=== PATIENT | female | born 1965 | race American Indian/Alaskan Native ===

== ENCOUNTER 2017-12-10 15:16 | Inpatient (IN) | payer MEDICAID ==
[2017-12-10 16:34] LABS: SQUAMOUS EPITHIAL 39 /hpf (0-5); URINE BACTERIA RARE (<OCC); URINE BILIRUBIN NEGATIVE (NEGATIVE); URINE BLOOD NEGATIVE (NEGATIVE); URINE CLARITY Hazy (Clear); URINE COLOR Yellow (YELLOW); URINE GLUCOSE (UA) NORMAL (Normal); URINE LEUKOCYTE ESTERASE NEG Leu/uL (Negative); URINE PROTEIN 2+ mg/dL (NEGATIVE)
[2017-12-10 17:15] LABS: ALBUMIN 4.4 g/dL (3.5-5.0); ALT/SGPT 16 U/L (9-52); AST/SGOT 24 U/L (14-36); BLOOD UREA NITROGEN 17 mg/dL (7-17); CALCIUM 9.3 mg/dl (8.6-10.4); GFR AFRICAN-AMERICAN 52; GFR NON-AFRICAN AMERICAN 43
[2017-12-10 17:16] LABS: BASO % 0.3 % (0.0-2.0); EOS # 0.1 K/uL (0.0-0.7); EOS % 1.2 % (0.0-4.0); HEMOGLOBIN 14.6 g/dL (11.0-16.0); LYMPH # 2.9 K/uL (1.0-4.3); LYMPH % 56.3 % (20.0-40.0); MEAN CELL VOLUME 94.8 fL (81.0-99.0); MEAN CORPUSCULAR HEMOGLOBIN 31.6 pg (27.0-31.0); MEAN CORPUSCULAR HGB CONC 33.3 g/dL (33.0-37.0); MEAN PLATELET VOLUME 8.4 fL (7.2-11.7); MONO # 0.3 K/uL (0.0-0.8); NEUT # 1.9 K/uL (1.8-7.0); NEUT % 37.2 % (50.0-75.0); NRBC % 0.1 % (0.0-2.0); RBC 4.64 Mil/uL (3.80-5.20); RED CELL DISTRIBUTION WIDTH 14.8 % (11.5-14.5); WHITE BLOOD COUNT 5.2 K/uL (4.8-10.8)
[2017-12-10 17:32] LABS: BARBITURATES, UR NEGATIVE (NEGATIVE); BENZODIAZEPINES, UR NEGATIVE (NEGATIVE); PHENCYCLIDINE, UR NEGATIVE (NEGATIVE)
--- NOTE | 2017-12-10 17:32 | C.PDOC ---
History Of Present Illness 52 year old female presents to the ER requesting detox from oxycodon and heroin. Denies suicidal ideation or homicidal ideation. Denies other complaints at this time. Time Seen by Provider: 12/10/17 15:29 Chief Complaint (Nursing): Substance Abuse History Per: Patient History/Exam Limitations: no limitations Onset/Duration Of Symptoms: Days Current Symptoms Are (Timing): Still Present Suicide/Self Injury Attempted (Context): None Involuntary Hold By: None Recent travel outside of the [place]: No Past Medical History Reviewed: Historical Data, Nursing Documentation, Vital Signs Vital Signs: Last Vital Signs Temp 98.4 F 12/10/17 18:36 Pulse 55 L 12/10/17 18:36 Resp 16 12/10/17 18:36 BP 196/78 H 12/10/17 18:36 Pulse Ox 100 12/10/17 18:41 - Medical History PMH: Arthritis, Back Problems, CHF, Chronic Kidney Disease Family History: States: Unknown Family Hx - Social History Hx Alcohol Use: No Hx Substance Use: No - Immunization History Hx Tetanus Toxoid Vaccination: No Hx Influenza Vaccination: No Hx Pneumococcal Vaccination: No Review Of Systems Except As Marked, All Systems Reviewed And Found Negative. Physical Exam - Physical Exam Appears: Non-toxic Skin: Normal Color, Warm, Dry Head: Atraumatic, Normacephalic Eye(s): bilateral: Normal Inspection Oral Mucosa: Moist Neck: Normal, Supple Chest: Symmetrical, No Tenderness Cardiovascular: Rhythm Regular Respiratory: Normal Breath Sounds, No Rales, No Rhonchi, No Wheezing Gastrointestinal/Abdominal: Soft, No Tenderness Back: No CVA Tenderness Extremity: Normal ROM (x4) Neurological/Psych: Oriented x3, Normal Speech ED Course And Treatment - Laboratory Results Result Diagrams: 12/10/17 17:09 12/10/17 16:20 O2 Sat by Pulse Oximetry: 100 (Room air) Pulse Ox Interpretation: Normal Medical Decision Making Medical Decision Making: Assessment: Substance abuse Plan: * Blood work * Urinalysis * Crisis Patient medically cleared. Patient accept for detox admission under Dr. Delaney. Disposition Discussed With : Oscar Delaney Doctor Will See Patient In The: Hospital Counseled Patient/Family Regarding: Studies Performed, Diagnosis - Disposition Disposition: HOSPITALIZED Disposition Time: 18:41 Condition: FAIR - Clinical Impression Clinical Impression: Drug abuse - Scribe Statement The provider has reviewed the documentation as recorded by the Scribe Gomez Penn All medical record entries made by the Scribe were at my direction and personally dictated by me. I have reviewed the chart and agree that the record accurately reflects my personal performance of the history, physical exam, medical decision making, and the department course for this patient. I have also personally directed, reviewed, and agree with the discharge instructions and disposition.
[2017-12-10 17:41] LABS: OPIATES, UR POSITIVE (NEGATIVE)
--- NOTE | 2017-12-10 19:00 | PCM.BM ---
<NanyCece - Last Filed: 12/10/17 18:59> Treatment Plan Problems - Problems identified on initial assessmt Potential for opiate withdrawal Date Initiated: 12/10/17 Time Initiated: 18:59 Assessment reference: NA Status: Active Treatment assets and liabiliti Patient Assests: ADL independent, negotiates basic needs, cognitively intact Patient Liabilities: substance abuse, medical problems - Milieu Protocol Maintain good personal hygiene: daily Encourage regular showers, daily Remind patient to perform daily oral care, daily Assist patient to perform ADL's Conduct patient checks and document Observation sheet: Q15 minutes Maintain personal safety: every shift Educate patient to report safety concerns to staff, every shift Monitor environment for contraband/sharps Medication safety: Monitor for expected outcome, potential side effects: every shift, Assess barriers to learning: every shift, Assess readiness for medication education: every shift <Valerie Read - Last Filed: 12/12/17 09:00> Family Contact Family involvement: Famliy/SO not involved - Goals for Treatment Patient goals for treatment: Complete detox and transition to IOP. Discharge/Continuing Care - Education Needs Education Needs: Patient Medication, Patient Diagnosis/Disease Process, Patient Coping Skills, Patient Anger Management skills, Patient Placement options, Patient Community resources - Discharge Discharge Criteria: No longer exhibiting s/s of withdrawal, Reduction of target symptoms Discharge to:: Home - Treatment Team Participation Patient/Family/SO Statement: 12/12/17 08:59 "I wanna go to an IOP in [place]..." Discussed with Family/SO: No Was Patient/Family/SO present at Treatment Team Meeting: Yes
--- NOTE | 2017-12-11 14:41 | PCM.PSYCH ---
Initial Psychiatric Evaluation - Initial Psychiatric Evaluation Type of Admission: Voluntary Chief Complaint (in patient's own words): "I want to be off this stuff" History of Present Illness and Precipitating Events: Patient was seen with treatment team. Patient is a 52 year old female with extensive medical history. The patient states that she brought herself to the ED for detox from oxycodone and heroin. The patient is wheelchair bound and is one disability. She states that she does 2-3 bags of heroin a day and takes 3-4 oxycodone pills a day. The patient also smokes cocaine. The patient states that her use started after she was in the correction where she was given Oxycodone. On her discharge from the correction the patient was not given any oxycodone so the patient resorted to using heroin. The patient has been a part of a methadone clinic previously for 8 months. She states that she has been to detox 3-4 times and rehab twice. The patient states that she is willing to go to outpatient rehab. She reports no psychiatric history. The patient has no suicidal or homicidal ideations. Past Medical Hx: HTN, CKD Stage IV, Spinal Stenosis, osteoarthritis Social History: The patient lives with her fiance and is on disability, patient smokes 10 cigarettes a day Family Hx: denies Current Medications: Active Medications Generic Name Dose Route Start Last Admin Trade Name Freq PRN Reason Stop Dose Admin Acetaminophen 650 mg 12/10/17 20:26 12/11/17 13:25 Tylenol 325mg Tab PO 650 mg Q8 PRN Administration Pain, moderate (4-7) Clonidine HCl 0.1 mg 12/10/17 20:54 12/10/17 21:14 Catapres PO 0.1 mg Q8 PRN Administration opiate withdrawal Clonidine HCl 0.1 mg 12/11/17 14:00 12/11/17 12:40 Catapres PO 0.1 mg TID GISEL Administration Ferrous Sulfate 325 mg 12/11/17 14:00 12/11/17 13:30 Feosol PO 325 mg TID GISEL Administration Hydralazine HCl 50 mg 12/11/17 14:00 12/11/17 12:40 Apresoline PO 50 mg TID GISEL Administration Losartan Potassium 100 mg 12/11/17 10:45 12/11/17 11:08 Cozaar PO 100 mg DAILY GISEL Administration Methadone HCl 15 mg 12/11/17 10:00 12/11/17 11:08 Methadone PO 12/15/17 09:59 15 mg Q24H GISEL Administration Taper Nicotine 1 patch 12/11/17 10:00 12/11/17 11:08 Nicoderm Cq TD 1 patch DAILY GISEL Administration Trazodone HCl 50 mg 12/10/17 20:18 12/10/17 21:14 Desyrel PO 50 mg HS PRN Administration Insomnia Past Psychiatric History - Past Psychiatric History Previous Treatment History: None Pertinent Medical Hx (Current Medical&Sleep Prob, Allergies): Allergies Allergy/AdvReac Type Severity Reaction Status Date / Time amlodipine Allergy Verified 12/10/17 15:32 Acetaminophen with Codeine [Tylenol with Codeine #4 Tablet] 1 each PO TID Ferrous Sulfate 325 mg PO TID 12/10/17 Losartan [Cozaar] 100 mg PO DAILY 12/10/17 Zolpidem [Ambien] 5 mg PO HS 12/10/17 cloNIDine [clonidine HCl] 0.1 mg PO TID 12/10/17 hydrALAZINE [hydralazine Hydrochloride] 50 mg PO TID 12/10/17 Review of Systems - Psychiatric Psychiatric: Abnormal Sleep Pattern, Anxiety, Difficulty Concentrating. absent : Homicidal Ideation, Paranoia, Suicidal Ideation Mental Status Examination - Personal Presentation Personal Presentation: Looks stated age - Affect Affect: Broad - Motor Activity Motor Activity: Calm - Reliability in Providing Information Reliability in Providing Information: Fair - Speech Speech: Organized - Mood Mood: Anxious - Formal Thought Process Formal Thought Process: No Impairment - Cognitive Functions Orientation: Person, Place, Situation, Time Sensorium: Alert Attention/Concentration: Attentive Estimate of Intelligence: Average Judgement: Intact, as evidence by: Insight regarding need for hospitalization Memory: Recent intact, as evidence by: Ability to recall events of the day, Remote intact, as evidenced by: Abilit to recall sig. life events - Risk Risk: Withdrawal, Diminished functioning - Strength & Assets Inventory Strength & Assets Inventory: Cooperative - Limitations Limitations: Living alone DSM 5 DX - DSM 5 DSM 5 Diagnosis: Opioid use disorder, moderate Opioid withdrawal Cocaine use disorder, moderate Tobacco use disorder - Recommended/Plan of Treatment Treatment Recommendations and Plan of Treatment: Opioid use disorder severe CBT Psychoeducation Supportive therapy, individual therapy Use [place] for abstinence Refer to outpatient program Opioid withdrawal Monitor for withdrawal symptoms Taper with methadone Cocaine use disorder moderate CBT Psychoeducation Supportive therapy, individual therapy Use [place] for abstinence Tobacco use disorder CBT Psychoeducation Supportive therapy, individual therapy Use [place] for abstinence Nicotine patch if needed 33 min Projected ELOS: 4 days - Smoking Cessation Smoking Cessation Initiated: Yes
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
[2017-12-12 09:41] LABS: BASO % 0.6 % (0.0-2.0); EOS # 0.1 K/uL (0.0-0.7); EOS % 1.7 % (0.0-4.0); HEMOGLOBIN 12.9 g/dL (11.0-16.0); LYMPH # 2.1 K/uL (1.0-4.3); LYMPH % 65.1 % (20.0-40.0); MEAN CELL VOLUME 93.9 fL (81.0-99.0); MEAN CORPUSCULAR HEMOGLOBIN 31.9 pg (27.0-31.0); MEAN PLATELET VOLUME 9.2 fL (7.2-11.7); MONO # 0.2 K/uL (0.0-0.8); MONO % 5.7 % (0.0-10.0); NEUT # 0.9 K/uL (1.8-7.0); NEUT % 26.9 % (50.0-75.0); NRBC % 0.1 % (0.0-2.0); RBC 4.05 Mil/uL (3.80-5.20); RED CELL DISTRIBUTION WIDTH 14.9 % (11.5-14.5); WHITE BLOOD COUNT 3.2 K/uL (4.8-10.8)
[2017-12-12 10:03] LABS: ALB/GLOB RATIO 1.1 (1.0-2.1); ALT/SGPT 24 U/L (9-52); AST/SGOT 31 U/L (14-36); BLOOD UREA NITROGEN 27 mg/dL (7-17); CALCIUM 9.4 mg/dl (8.6-10.4); GFR AFRICAN-AMERICAN 38; GFR NON-AFRICAN AMERICAN 31
--- NOTE | 2017-12-12 10:40 | CT ---
Date of service: 12/12/2017 PROCEDURE: CT HEAD WITHOUT CONTRAST. HISTORY: HTN emergency with headache COMPARISON: None available. TECHNIQUE: Axial computed tomography images were obtained through the head/brain without intravenous contrast. Radiation dose: Total exam DLP = 706.25 mGy-cm. This CT exam was performed using one or more of the following dose reduction techniques: Automated exposure control, adjustment of the mA and/or kV according to patient size, and/or use of iterative reconstruction technique. FINDINGS: HEMORRHAGE: No intracranial hemorrhage. BRAIN: No mass effect or edema. No atrophy or chronic microvascular ischemic changes. VENTRICLES: Unremarkable. No hydrocephalus. CALVARIUM: Unremarkable. PARANASAL SINUSES: Unremarkable as visualized. No significant inflammatory changes. MASTOID AIR CELLS: Unremarkable as visualized. No inflammatory changes. OTHER FINDINGS: None. IMPRESSION: Normal CT of the Head. No intracranial mass, hemorrhage or evidence of acute infarct
[2017-12-12] MEDS ORDERED: Nitroglycerin 2% Ointment Foilpak UD TOP ONE (11:30)
--- NOTE | 2017-12-12 12:35 | PCM.PYCHPN ---
Psychiatric Progress Note - Psychiatric Progress Note Patient Chief Complaint: "I want to be off this stuff" Medication Change: Yes Medical Record Reviewed: Yes Mental Status Examination - Cognitive Function Orientation: Person, Place, Situation, Time - Mood Mood: Anxious - Affect Affect: Broad - Formal Thought Process Formal Thought Process: No Impairment - Homicidal Ideation Homicidal Ideation: No Goal/Treatment Plan - Goal/Treatment Plan Progress Toward Problem(s) and Goals/Treatment Plan: Opioid use disorder severe CBT Psychoeducation Supportive therapy, individual therapy Use [place] for abstinence Refer to outpatient program Opioid withdrawal Monitor for withdrawal symptoms Taper with methadone Cocaine use disorder moderate CBT Psychoeducation Supportive therapy, individual therapy Use [place] for abstinence Tobacco use disorder CBT Psychoeducation Supportive therapy, individual therapy Use [place] for abstinence Nicotine patch if needed 33 min
--- NOTE | 2017-12-12 14:12 | CP.PCM.PN ---
Subjective - Date & Time of Evaluation Date of Evaluation: 12/12/17 Time of Evaluation: 14:04 - Subjective Subjective: Patient seen and examined at bedside. Stated that her head is foggy due to opoid withdrawal. Patient denied chest pain, palpitation, dyspnea, leg selling, headache, blurry vision, fever. Patient denied h/o stroke, [place]. Last Echo was done with Dr Armstrong (her fish flipper) within the last few month but does not know the results. Patient stated that she is compliant with her home medications. Objective - Vital Signs/Intake and Output Vital Signs (last 24 hours): Temp Pulse Resp BP Pulse Ox 98.6 F 44 L 22 200/84 H 100 12/12/17 06:30 12/12/17 12:24 12/12/17 10:51 12/12/17 09:00 12/12/17 10:51 Intake and Output: 12/12/17 12/12/17 06:59 18:59 Intake Total 250 Balance 250 - Medications Medications: Current Medications Acetaminophen (Tylenol 325mg Tab) 650 mg PO Q8 PRN PRN Reason: Pain, moderate (4-7) Last Admin: 12/12/17 07:58 Dose: 650 mg Clonidine HCl (Catapres) 0.1 mg PO Q8 PRN PRN Reason: opiate withdrawal Last Admin: 12/10/17 21:14 Dose: 0.1 mg Clonidine HCl (Catapres) 0.1 mg PO TID [facility] Last Admin: 12/12/17 13:37 Dose: Not Given Ferrous Sulfate (Feosol) 325 mg PO TID [facility] Last Admin: 12/12/17 13:22 Dose: 325 mg Hydralazine HCl (Apresoline) 50 mg PO TID [facility] Last Admin: 12/12/17 13:18 Dose: Not Given Hydralazine HCl (Apresoline) 10 mg IVP Q6H PRN PRN Reason: Systolic Blood Pressure Losartan Potassium (Cozaar) 100 mg PO DAILY [facility] Last Admin: 12/12/17 09:27 Dose: 100 mg Methadone HCl (Methadone) 10 mg PO Q24H [facility] PRN Reason: Taper Stop: 12/15/17 09:59 Last Admin: 12/12/17 09:28 Dose: Not Given Nicotine (Nicoderm Cq) 1 patch TD DAILY [facility] Last Admin: 12/12/17 10:30 Dose: Not Given Trazodone HCl (Desyrel) 50 mg PO HS PRN PRN Reason: Insomnia Last Admin: 12/11/17 21:09 Dose: 50 mg - Labs Labs: 12/12/17 09:37 12/12/17 09:37 - Constitutional Appears: Well, No Acute Distress - Head Exam Head Exam: ATRAUMATIC, NORMAL INSPECTION, NORMOCEPHALIC - Eye Exam Eye Exam: EOMI, Normal appearance, PERRL - ENT Exam ENT Exam: Mucous Membranes Moist - Neck Exam Neck Exam: absent: Lymphadenopathy - Respiratory Exam Respiratory Exam: Clear to Ausculation Bilateral - Cardiovascular Exam Cardiovascular Exam: Bradycardia, Murmur - GI/Abdominal Exam GI & Abdominal Exam: Soft, Normal Bowel Sounds. absent: Tenderness - Rectal Exam Rectal Exam: Deferred - Extremities Exam Extremities Exam: Full ROM, Normal Capillary Refill, Normal Inspection. absent : Joint Swelling, Pedal Edema - Back Exam Back Exam: NORMAL INSPECTION - Neurological Exam Neurological Exam: Alert, Altered, Awake, Oriented x3 - Psychiatric Exam Psychiatric exam: Normal Affect, Normal Mood - Skin Skin Exam: Dry, Normal Color Assessment and Plan (1) HTN (hypertension) Assessment & Plan: BP max 200/84 today. pt asymptomatic Head CT: no intracranial hge hydralazine 50 mg TID clonidine 0.1 mg TID losartan 100 mg QD Echocardiogram Troponin -ve x1 Status: Acute (2) EKG abnormalities Status: Acute (3) Drug abuse Assessment & Plan: Urine Tox + opiate and cocaine as per psychiatry reccs Status: Acute
--- NOTE | 2017-12-12 16:00 | CP.PCM.CON ---
History of Present Illness - History of Present Illness History of Present Illness: Nephrology Consultation Note: Assessment: critical uncontrolled severe HTN with emergency Acute Kidney Injury (N17.9) likely hemodynamic due to BP changes, drugs such as cocaine also contributes CKD stage 3 with 500 mg proteinuria likely due to HTN HTN CKD (I12.9) cocaine abuse, opiates abuse active smoker thrombocytopenia Plan No acute need for renal replacement therapy at this time maintain hemodynamics stable. continue with losartan 100 mg/day. increase hydralazine 100 mg q8 hr. will start minoxidil 5 mg/day and chlorthalidone 25 mg /day. pt had tolerated norvasc in past, consider re-introducing it if not adequately controlled with changes made. If BP remains uncontrolled to this degree, consider transfer to ICU today for IV meds/continuous drips. minimize clonidine due to bradycardia. Avoid beta-blockers due to cocaine + and bradycardia. monitor I/O daily weights and renal function with BMP will consider secondary HTN work up if BP remains uncontrolled despite abstinence from drugs Dose meds/antibiotics for reduced GFR. Avoid fleets enema/magnesium based laxatives. Avoid nephrotoxins/NSAIDs/ iodinated contrast (unless needed emergently) Glycemic control, low salt diet Further work up for as per primary team. Glycemic control. pt need to abstain from drugs. smoking cessation. weight loss. diet/exercise and lifestyle modifications needed. d/w patient about risks and consequences of uncontrolled HTN and drug abuse. Further work up/management as per primary team Thanks for allowing me to participate in care of your patient. Will follow with you. Please call if any Qs. d/w team. Dr Rolly Cardoso Office: [phone] Chief Complaint; headache reason for consult: CKD and HTN HPI: Pt is a 52 F y/o F with hx of HTN x 13 yrs, CKD stage 3/4, thrombocytopenia , polysubstance drug abuse, presented for detox and transferred to medical floor for HTN emergency renal consult for MELE/CKD and HTN management pt c/o headache. denies CP/SOB Denies OTC/herbal meds or NSAIDs No recent iodinated contrast exposure. admits to smoking and drug abuse ROS: Cardiovascular: No chest pain. Pulmonary: No shortness of breath Gastrointestinal: denies abdominal pain No nausea. No vomiting. Genitourinary: No pain while urinating. Denies blood in urine. All other negative except as mentioned in HPI Physical Examination: General Appearance: uncomfortable, in no acute respiratory distress, co- operative Vitals reviewed and noted as below Head; Atraumatic, normocephalic ENT: no ulcers no thrush. Tongue is midline. Oropharynx: no rash or ulcers. EYES: Pupils are equal, round and reactive to light accommodation. Eye muscles and extraocular movement intact. Sclera is anicteric. Neck; supple no lymphadenopathy, no thyromegaly or bruit Lungs: Normal respiratory rate/effort. Breath sounds bilateral equal and clear Heart: Normal rate. s1s2 normal. No rub or gallop. Extremities: no edema. No varicose veins Neurological: Patient is alert, awake and oriented to person, place and time. No focal deficit. Strength bilateral appropriate and equal Skin: Warm and dry. Normal turgor. No rash. Palpitation: Normal elasticity for age Abdomen: Abdomen is soft. Bowel sounds +. There is no abdominal tenderness, no guarding/rigidity no organomegaly Psych: normal insight and normal affect/mood MSK: no joint tenderness or swelling. Digits and nails normal, no deformity : kidney or bladder not palpable Labs/imaging reviewed. Past medical history, past surgical history, family history, social history, allergy reviewed and noted as below Family hx: no hx of CKD. Rest non-contributory renal sono as outpt: mildly increased echogenicity UTOX + for cocaine and opiates Past Patient History - Past Medical History & Family History Past Medical History?: Yes - Past Social History Smoking Status: Light Smoker < 10 Cigarettes Daily - CARDIAC Hx Congestive Heart Failure: Yes - PULMONARY Hx Tuberculosis: No - NEUROLOGICAL HX Cerebrovascular Accident: No Hx Seizures: No - HEENT Other/Comment: wears reading glasses. - RENAL Hx Chronic Kidney Disease: Yes - ENDOCRINE/METABOLIC Hx Endocrine Disorders: No - HEMATOLOGICAL/ONCOLOGICAL Hx Cancer: No Hx Human Immunodeficiency Virus (HIV): No - INTEGUMENTARY Hx Dermatological Problems: No - MUSCULOSKELETAL/RHEUMATOLOGICAL Hx Falls: No - GASTROINTESTINAL Hx Gastrointestinal Disorders: Yes Hx Gastroesophageal Reflux: Yes - GENITOURINARY/GYNECOLOGICAL Hx Sexually Transmitted Disorders: No - PSYCHIATRIC Hx Substance Use: Yes - SURGICAL HISTORY Hx Surgeries: No - ANESTHESIA Hx Anesthesia: No Meds Allergies/Adverse Reactions: Allergies Allergy/AdvReac Type Severity Reaction Status Date / Time amlodipine Allergy Verified 12/10/17 15:32 - Medications Medications: Current Medications Acetaminophen (Tylenol 325mg Tab) 650 mg PO Q8 PRN PRN Reason: Pain, moderate (4-7) Last Admin: 12/12/17 07:58 Dose: 650 mg Clonidine HCl (Catapres) 0.1 mg PO Q8 PRN PRN Reason: opiate withdrawal Last Admin: 12/10/17 21:14 Dose: 0.1 mg Clonidine HCl (Catapres) 0.1 mg PO TID [facility] Last Admin: 12/12/17 13:37 Dose: Not Given Ferrous Sulfate (Feosol) 325 mg PO TID [facility] Last Admin: 12/12/17 13:22 Dose: 325 mg Hydralazine HCl (Apresoline) 50 mg PO TID [facility] Last Admin: 12/12/17 15:17 Dose: 50 mg Hydralazine HCl (Apresoline) 10 mg IVP Q6H PRN PRN Reason: Systolic Blood Pressure Losartan Potassium (Cozaar) 100 mg PO DAILY [facility] Last Admin: 12/12/17 09:27 Dose: 100 mg Methadone HCl (Methadone) 10 mg PO Q24H [facility] PRN Reason: Taper Stop: 12/15/17 09:59 Last Admin: 12/12/17 09:28 Dose: Not Given Nicotine (Nicoderm Cq) 1 patch TD DAILY [facility] Last Admin: 12/12/17 10:30 Dose: Not Given Trazodone HCl (Desyrel) 50 mg PO HS PRN PRN Reason: Insomnia Last Admin: 12/11/17 21:09 Dose: 50 mg Results - Vital Signs Recent Vital Signs: Last Vital Signs Temp 98.6 F 12/12/17 06:30 Pulse 50 L 12/12/17 12:50 Resp 22 12/12/17 12:50 BP 238/119 H 12/12/17 12:50 Pulse Ox 100 12/12/17 12:50 - Labs Result Diagrams: 12/12/17 09:37 12/12/17 09:37 Labs: Laboratory Results - last 24 hr 12/12/17 12/12/17 09:37 09:37 WBC 3.2 L RBC 4.05 Hgb 12.9 Hct 38.0 MCV 93.9 MCH 31.9 H MCHC 34.0 RDW 14.9 H Plt Count 85 L D MPV 9.2 Neut % (Auto) 26.9 L Lymph % (Auto) 65.1 H Dillon % (Auto) 5.7 Eos % (Auto) 1.7 Baso % (Auto) 0.6 Neut # (Auto) 0.9 L Lymph # (Auto) 2.1 Dillon # (Auto) 0.2 Eos # (Auto) 0.1 Baso # (Auto) 0.0 Sodium 141 Potassium 4.6 Chloride 110 H Carbon Dioxide 21 L Anion Gap 15 BUN 27 H Creatinine 1.7 H Est GFR ( Amer) 38 Est GFR (Non-Af Amer) 31 Random Glucose 100 Calcium 9.4 Phosphorus 3.2 Magnesium 2.0 Total Bilirubin 0.2 AST 31 ALT 24 Alkaline Phosphatase 93 Total Creatine Kinase 32 CK-MB (Mass) 0.40 Troponin I < 0.0120 Total Protein 7.6 Albumin 4.0 Globulin 3.7 Albumin/Globulin Ratio 1.1
--- NOTE | 2017-12-12 17:13 | CP.PCM.CON ---
History of Present Illness - History of Present Illness History of Present Illness: Cardiology consult for abnormal EKG finding 52 y/o female with h/o opiate and cocaine abuse. Stated that her head is foggy due to opoid withdrawal. Patient denied chest pain, palpitation, dyspnea, leg swelling, headache, blurry vision, fever. Patient denied h/o stroke, [place]. Patient has heart murmur since childhood and f/u with Dr Armstrong (her credit card control clerk [phone]). Last echo and stress test done 06/2017 but does not know the results and missed her appointment with her credit card control clerk. Patient stated that she is compliant with her home medications. Review of Systems - Constitutional Constitutional: As Per HPI - EENT Eyes: As Per HPI - Breasts Breasts: As Per HPI - Cardiovascular Cardiovascular: absent: As Per HPI, Acrocyanosis, Chest Pain, Chest Pain at Rest , Chest Pain with Activity, Claudication, Diaphoresis, Dyspnea, Dyspnea on Exertion, Edema, Irregular Heart Rhythm, Pain Radiating to Arm/Neck/Jaw, Leg Edema, Leg Ulcers, Lightheadedness, Orthopnea, Palpitations, Paroxysmal Nocturnal Dyspnea, Pedal Edema, Radiating Pain, Rapid Heart Rate, Slow Heart Rate, Syncope, Other - Respiratory Respiratory: As Per HPI - Gastrointestinal Gastrointestinal: As Per HPI - Genitourinary Genitourinary: As Per HPI - Reproductive: Female Reproductive:Female: As Per HPI - Menstruation Menstruation: As Per HPI - Musculoskeletal Musculoskeletal: As Per HPI - Integumentary Integumentary: As Per HPI - Neurological Neurological: As Per HPI - Psychiatric Psychiatric: As Per HPI - Endocrine Endocrine: As Per HPI - Hematologic/Lymphatic Hematologic: As Per HPI Past Patient History - Past Medical History & Family History Past Medical History?: Yes - Past Social History Smoking Status: Light Smoker < 10 Cigarettes Daily - CARDIAC Hx Congestive Heart Failure: Yes - PULMONARY Hx Tuberculosis: No - NEUROLOGICAL HX Cerebrovascular Accident: No Hx Seizures: No - HEENT Other/Comment: wears reading glasses. - RENAL Hx Chronic Kidney Disease: Yes - ENDOCRINE/METABOLIC Hx Endocrine Disorders: No - HEMATOLOGICAL/ONCOLOGICAL Hx Cancer: No Hx Human Immunodeficiency Virus (HIV): No - INTEGUMENTARY Hx Dermatological Problems: No - MUSCULOSKELETAL/RHEUMATOLOGICAL Hx Falls: No - GASTROINTESTINAL Hx Gastrointestinal Disorders: Yes Hx Gastroesophageal Reflux: Yes - GENITOURINARY/GYNECOLOGICAL Hx Sexually Transmitted Disorders: No - PSYCHIATRIC Hx Substance Use: Yes - SURGICAL HISTORY Hx Surgeries: No - ANESTHESIA Hx Anesthesia: No Meds Allergies/Adverse Reactions: Allergies Allergy/AdvReac Type Severity Reaction Status Date / Time amlodipine Allergy Verified 12/10/17 15:32 - Medications Medications: Current Medications Acetaminophen (Tylenol 325mg Tab) 650 mg PO Q8 PRN PRN Reason: Pain, moderate (4-7) Last Admin: 12/12/17 07:58 Dose: 650 mg Chlorthalidone ([place]ygro[place]) 25 mg PO DAILY [facility] Clonidine HCl (Catapres) 0.1 mg PO Q8 PRN PRN Reason: opiate withdrawal Last Admin: 12/10/17 21:14 Dose: 0.1 mg Clonidine HCl (Catapres) 0.1 mg PO TID [facility] Last Admin: 12/12/17 13:37 Dose: Not Given Ferrous Sulfate (Feosol) 325 mg PO TID [facility] Last Admin: 12/12/17 13:22 Dose: 325 mg Hydralazine HCl (Apresoline) 10 mg IVP Q6H PRN PRN Reason: Systolic Blood Pressure Hydralazine HCl (Apresoline) 100 mg PO Q8 [facility] Losartan Potassium (Cozaar) 100 mg PO DAILY [facility] Last Admin: 12/12/17 09:27 Dose: 100 mg Methadone HCl (Methadone) 10 mg PO Q24H [facility] PRN Reason: Taper Stop: 12/15/17 09:59 Last Admin: 12/12/17 09:28 Dose: Not Given Minoxidil (Minoxidil) 5 mg PO DAILY [facility] Nicotine (Nicoderm Cq) 1 patch TD DAILY [facility] Last Admin: 12/12/17 10:30 Dose: Not Given Trazodone HCl (Desyrel) 50 mg PO HS PRN PRN Reason: Insomnia Last Admin: 12/11/17 21:09 Dose: 50 mg Physical Exam - Constitutional Appears: Well, No Acute Distress - Head Exam Head Exam: ATRAUMATIC, NORMAL INSPECTION, NORMOCEPHALIC - Eye Exam Eye Exam: EOMI, Normal appearance, PERRL Pupil Exam: NORMAL ACCOMODATION, PERRL - ENT Exam ENT Exam: Mucous Membranes Moist, Normal Exam - Neck Exam Neck exam: Positive for: Normal Inspection - Respiratory Exam Respiratory Exam: Clear to Auscultation Bilateral, NORMAL BREATHING PATTERN - Cardiovascular Exam Cardiovascular Exam: Bradycardia, REGULAR RHYTHM, Systolic Murmur. absent: JVD - GI/Abdominal Exam GI & Abdominal Exam: Normal Bowel Sounds, Soft. absent: Tenderness - Rectal Exam Rectal Exam: Deferred - Extremities Exam Extremities exam: Positive for: normal inspection, pedal pulses present. Negative for: calf tenderness, pedal edema, tenderness - Back Exam Back exam: absent: CVA tenderness (L), CVA tenderness (R) - Neurological Exam Neurological exam: Alert, Oriented x3 - Psychiatric Exam Psychiatric exam: Normal Affect, Normal Mood - Skin Skin Exam: Dry, Normal Color, Warm Results - Vital Signs Recent Vital Signs: Last Vital Signs Temp 97.4 F L 12/12/17 11:00 Pulse 49 L 12/12/17 14:55 Resp 19 12/12/17 14:55 BP 231/115 H 12/12/17 14:55 Pulse Ox 100 12/12/17 14:55 - Labs Result Diagrams: 12/12/17 09:37 12/12/17 09:37 Labs: Laboratory Results - last 24 hr 12/12/17 12/12/17 09:37 09:37 WBC 3.2 L RBC 4.05 Hgb 12.9 Hct 38.0 MCV 93.9 MCH 31.9 H MCHC 34.0 RDW 14.9 H Plt Count 85 L D MPV 9.2 Neut % (Auto) 26.9 L Lymph % (Auto) 65.1 H [place] % (Auto) 5.7 Eos % (Auto) 1.7 Baso % (Auto) 0.6 Neut # (Auto) 0.9 L Lymph # (Auto) 2.1 [place] # (Auto) 0.2 Eos # (Auto) 0.1 Baso # (Auto) 0.0 Sodium 141 Potassium 4.6 Chloride 110 H Carbon Dioxide 21 L Anion Gap 15 BUN 27 H Creatinine 1.7 H Est GFR ( Amer) 38 Est GFR (Non-Af Amer) 31 Random Glucose 100 Calcium 9.4 Phosphorus 3.2 Magnesium 2.0 Total Bilirubin 0.2 AST 31 ALT 24 Alkaline Phosphatase 93 Total Creatine Kinase 32 CK-MB (Mass) 0.40 Troponin I < 0.0120 Total Protein 7.6 Albumin 4.0 Globulin 3.7 Albumin/Globulin Ratio 1.1 - EKG Data EKG Interpreted by: Other Rate: Bradycardia Assessment & Plan (1) HTN (hypertension) Status: Acute (2) EKG abnormalities Status: Acute (3) Drug abuse Status: Acute - Assessment and Plan (Free Text) Assessment: 52 y/o female with PMH of HTN, CHF, CKD admitted for aopiates and cocaine intoxication. BP 200/84 HR 50, EKG shows sinus bradycardia Plan: continue current medication as per medical team elevated BP and EKG changes are due to drug abuse Plan reviewed and discussed with Dr Roberto Finn, PGY 1 - Date & Time Date: 12/12/17 Time: 17:42
[2017-12-13 07:57] LABS: BASO % 0.4 % (0.0-2.0); EOS # 0.1 K/uL (0.0-0.7); EOS % 1.4 % (0.0-4.0); HEMOGLOBIN 12.8 g/dL (11.0-16.0); LYMPH # 2.2 K/uL (1.0-4.3); LYMPH % 57.2 % (20.0-40.0); MEAN CELL VOLUME 93.7 fL (81.0-99.0); MEAN CORPUSCULAR HEMOGLOBIN 32.1 pg (27.0-31.0); MEAN CORPUSCULAR HGB CONC 34.3 g/dL (33.0-37.0); MEAN PLATELET VOLUME 9.1 fL (7.2-11.7); MONO # 0.3 K/uL (0.0-0.8); MONO % 7.5 % (0.0-10.0); NEUT # 1.3 K/uL (1.8-7.0); NEUT % 33.5 % (50.0-75.0); NRBC % 0.2 % (0.0-2.0); RBC 3.97 Mil/uL (3.80-5.20); RED CELL DISTRIBUTION WIDTH 14.9 % (11.5-14.5); WHITE BLOOD COUNT 3.8 K/uL (4.8-10.8)
[2017-12-13 08:36] LABS: HEPATITIS B SURFACE AG Negative (NEGATIVE)
[2017-12-13 08:44] LABS: HEPATITIS A IGM NEGATIVE (NEGATIVE); HEPATITIS B CORE AB NEGATIVE (NEGATIVE)
[2017-12-13 08:57] LABS: CALCIUM 9.5 mg/dl (8.6-10.4)
[2017-12-13] MEDS: NIFEdipine 60 mg ER Tab PO SCH (10:18)
[2017-12-13 10:19] LABS: HEPATITIS C ANTIBODY REACTIVE (NEGATIVE)
--- NOTE | 2017-12-13 11:33 | CARD ---
APPROVED REPORT Date of service: 12/12/2017 EKG Measurement Heart [id number] <Conclusion> Marked sinus bradycardia Possible Left atrial enlargement Anterior infarct, age undetermined Abnormal ECG
[2017-12-13] MEDS ORDERED: Bisacodyl 5mg EC Tab PO ONE (11:37)
--- NOTE | 2017-12-13 11:45 | PCM.PYCHPN ---
Psychiatric Progress Note - Psychiatric Progress Note Patient seen today, length of contact: 15 min Patient Chief Complaint: "I want to be off this stuff" Medication Change: Yes Medical Record Reviewed: Yes Mental Status Examination - Cognitive Function Orientation: Person, Place, Situation, Time - Mood Mood: Anxious - Affect Affect: Broad - Formal Thought Process Formal Thought Process: No Impairment - Homicidal Ideation Homicidal Ideation: No Goal/Treatment Plan - Goal/Treatment Plan Progress Toward Problem(s) and Goals/Treatment Plan: Opioid use disorder severe CBT Psychoeducation Supportive therapy, individual therapy Use CO for abstinence Refer to outpatient program Opioid withdrawal Monitor for withdrawal symptoms Taper with methadone Cocaine use disorder moderate CBT Psychoeducation Supportive therapy, individual therapy Use CO for abstinence Tobacco use disorder CBT Psychoeducation Supportive therapy, individual therapy Use CO for abstinence Nicotine patch if needed 33 min
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
--- NOTE | 2017-12-13 17:15 | CP.PCM.PN ---
Subjective - Date & Time of Evaluation Date of Evaluation: 12/13/17 Time of Evaluation: 11:35 - Subjective Subjective: Patient seen and examined at bedside. Looks anxious, diaphoretic likely due to opiates/cocaine withdrawal. She c/o fogginess in her head since last night. Patient denied CP, palpitation, dyspnea. Objective - Vital Signs/Intake and Output Vital Signs (last 24 hours): Temp Pulse Resp BP Pulse Ox 97.4 F L 69 20 147/89 98 12/13/17 15:45 12/13/17 15:45 12/13/17 15:45 12/13/17 15:45 12/13/17 15:45 Intake and Output: 12/13/17 12/13/17 06:59 18:59 Intake Total 500 450 Balance 500 450 - Medications Medications: Current Medications Acetaminophen (Tylenol 325mg Tab) 650 mg PO Q8 PRN PRN Reason: Pain, moderate (4-7) Last Admin: 12/13/17 10:17 Dose: 650 mg Acetaminophen (Tylenol 325mg Tab) 650 mg PO Q6 PRN PRN Reason: Pain, Mild (1-3) Chlorthalidone (Hygroton) 25 mg PO DAILY [facility] Last Admin: 12/13/17 10:16 Dose: 25 mg Clonidine HCl (Catapres) 0.1 mg PO Q8 PRN PRN Reason: opiate withdrawal Last Admin: 12/10/17 21:14 Dose: 0.1 mg Clonidine HCl (Catapres) 0.1 mg PO TID [facility] Last Admin: 12/13/17 13:03 Dose: Not Given Docusate Sodium (Colace) 100 mg PO BID [facility] Last Admin: 12/13/17 12:05 Dose: 100 mg Famotidine (Pepcid) 40 mg PO DAILY [facility] Last Admin: 12/13/17 10:18 Dose: 40 mg Ferrous Sulfate (Feosol) 325 mg PO TID [facility] Last Admin: 12/13/17 13:03 Dose: Not Given Hydralazine HCl (Apresoline) 10 mg IVP Q6H PRN PRN Reason: Systolic Blood Pressure Hydralazine HCl (Apresoline) 100 mg PO Q8 [facility] Last Admin: 12/13/17 13:04 Dose: Not Given Losartan Potassium (Cozaar) 100 mg PO DAILY [facility] Last Admin: 12/13/17 10:16 Dose: 100 mg Methadone HCl (Methadone) 5 mg PO Q24H [facility] PRN Reason: Taper Stop: 12/15/17 09:59 Last Admin: 12/13/17 10:16 Dose: 5 mg Metoclopramide HCl (Reglan) 5 mg PO Q6H PRN PRN Reason: Nausea/Vomiting Last Admin: 12/13/17 12:05 Dose: 5 mg Minoxidil (Minoxidil) 5 mg PO DAILY [facility] Last Admin: 12/13/17 10:16 Dose: 5 mg Nicotine (Nicoderm Cq) 1 patch TD DAILY [facility] Last Admin: 12/13/17 09:29 Dose: Not Given Nifedipine (Procardia Xl) 60 mg PO DAILY [facility] Last Admin: 12/13/17 10:18 Dose: 60 mg Trazodone HCl (Desyrel) 50 mg PO HS PRN PRN Reason: Insomnia Last Admin: 12/12/17 21:40 Dose: 50 mg - Labs Labs: 12/13/17 07:40 12/13/17 07:40 - Constitutional Appears: Non-toxic, In Acute Distress - Head Exam Head Exam: NORMAL INSPECTION, NORMOCEPHALIC - Eye Exam Eye Exam: EOMI, Normal appearance, PERRL Pupil Exam: NORMAL ACCOMODATION, PERRL - ENT Exam ENT Exam: Mucous Membranes Moist, Normal Exam - Neck Exam Neck Exam: Full ROM, Normal Inspection. absent: Lymphadenopathy - Respiratory Exam Respiratory Exam: Clear to Ausculation Bilateral, NORMAL BREATHING PATTERN - Cardiovascular Exam Cardiovascular Exam: Bradycardia, +S1, +S2, Murmur - GI/Abdominal Exam GI & Abdominal Exam: Soft, Normal Bowel Sounds. absent: Tenderness - Rectal Exam Rectal Exam: Deferred - Extremities Exam Extremities Exam: Normal Capillary Refill, Normal Inspection. absent: Calf Tenderness, Tenderness - Back Exam Back Exam: NORMAL INSPECTION - Neurological Exam Neurological Exam: Alert, Altered, Awake, Oriented x3 - Psychiatric Exam Psychiatric exam: Anxious - Skin Skin Exam: Diaphoretic, Intact, Normal Color, Warm Assessment and Plan (1) HTN (hypertension) Assessment & Plan: Renal artery duplex Status: Acute (2) EKG abnormalities Status: Acute (3) Drug abuse Status: Acute - Assessment and Plan (Free Text) Assessment: 52 y/o female with PMH of HTN, CHF, CKD admitted for opiates and cocaine intoxication. Currently has withdrawal symptoms. Vitals are stable, BP and HR normalized. Plan: Plan: Renal artery duplex echo reading pending read continue current medication manage withdrawal symptoms as per psych recs Plan reviewed and discussed with Dr Roberto Finn, PGY 1
--- NOTE | 2017-12-13 18:54 | CP.PCM.PN ---
Subjective - Date & Time of Evaluation Date of Evaluation: 12/13/17 Time of Evaluation: 18:52 - Subjective Subjective: Nephrology Consultation Note: Assessment: stable uncontrolled severe HTN with emergency: improved Acute Kidney Injury (N17.9) likely hemodynamic due to BP changes, drugs such as cocaine also contributes: improving CKD stage 3 with 500 mg proteinuria likely due to HTN HTN CKD (I12.9) cocaine abuse, opiates abuse active smoker thrombocytopenia Plan No acute need for renal replacement therapy at this time maintain hemodynamics stable. continue with losartan 100 mg/day. increased hydralazine 100 mg q8 hr. will start minoxidil 5 mg/day and chlorthalidone 25 mg /day. pt had tolerated norvasc in past without any allergic reaction. started nifedipine 60 mg/day. now BP better controlled minimize clonidine due to bradycardia. Avoid beta-blockers due to cocaine + and bradycardia. consider to gradually taper off clonidine monitor I/O daily weights and renal function with BMP will consider secondary HTN work up if BP remains uncontrolled despite abstinence from drugs Dose meds/antibiotics for reduced GFR. Avoid fleets enema/magnesium based laxatives. Avoid nephrotoxins/NSAIDs/ iodinated contrast (unless needed emergently) Glycemic control, low salt diet Further work up for as per primary team. Glycemic control. pt need to abstain from drugs. smoking cessation. weight loss. diet/exercise and lifestyle modifications needed. d/w patient about risks and consequences of uncontrolled HTN and drug abuse. Further work up/management as per primary team Thanks for allowing me to participate in care of your patient. Will follow with you. Please call if any Qs. had d/w team. Dr Rolly Cardoso Office: [phone] Chief Complaint; none reason for consult: CKD and HTN HPI: Pt is a 52 F y/o F with hx of HTN x 13 yrs, CKD stage 3/4, thrombocytopenia , polysubstance drug abuse, presented for detox and transferred to medical floor for HTN emergency renal consult for MELE/CKD and HTN management pt c/o headache. denies CP/SOB Denies OTC/herbal meds or NSAIDs No recent iodinated contrast exposure. admits to smoking and drug abuse ROS: Cardiovascular: No chest pain. Pulmonary: No shortness of breath Gastrointestinal: denies abdominal pain No nausea. No vomiting. Genitourinary: No pain while urinating. Denies blood in urine. All other negative except as mentioned in HPI Physical Examination: General Appearance: comfortable, in no acute respiratory distress, co-operative Vitals reviewed and noted as below Head; Atraumatic, normocephalic ENT: no ulcers no thrush. Tongue is midline. Oropharynx: no rash or ulcers. EYES: Pupils are equal, round and reactive to light accommodation. Eye muscles and extraocular movement intact. Sclera is anicteric. Neck; supple no lymphadenopathy, no thyromegaly or bruit Lungs: Normal respiratory rate/effort. Breath sounds bilateral equal and clear Heart: Normal rate. s1s2 normal. No rub or gallop. Extremities: no edema. No varicose veins Neurological: Patient is alert, awake and oriented to person, place and time. No focal deficit. Strength bilateral appropriate and equal Skin: Warm and dry. Normal turgor. No rash. Palpitation: Normal elasticity for age Abdomen: Abdomen is soft. Bowel sounds +. There is no abdominal tenderness, no guarding/rigidity no organomegaly Psych: normal insight and normal affect/mood MSK: no joint tenderness or swelling. Digits and nails normal, no deformity : kidney or bladder not palpable Labs/imaging reviewed. Past medical history, past surgical history, family history, social history, allergy reviewed and noted as below Family hx: no hx of CKD. Rest non-contributory renal sono as outpt: mildly increased echogenicity UTOX + for cocaine and opiates Objective - Vital Signs/Intake and Output Vital Signs (last 24 hours): Temp Pulse Resp BP Pulse Ox 97.4 F L 69 20 147/89 98 12/13/17 15:45 12/13/17 15:45 12/13/17 15:45 12/13/17 15:45 12/13/17 15:45 Intake and Output: 12/13/17 12/13/17 06:59 18:59 Intake Total 500 450 Balance 500 450 - Medications Medications: Current Medications Acetaminophen (Tylenol 325mg Tab) 650 mg PO Q8 PRN PRN Reason: Pain, moderate (4-7) Last Admin: 12/13/17 10:17 Dose: 650 mg Acetaminophen (Tylenol 325mg Tab) 650 mg PO Q6 PRN PRN Reason: Pain, Mild (1-3) Chlorthalidone (Hygroton) 25 mg PO DAILY [facility] Last Admin: 12/13/17 10:16 Dose: 25 mg Clonidine HCl (Catapres) 0.1 mg PO Q8 PRN PRN Reason: opiate withdrawal Last Admin: 12/10/17 21:14 Dose: 0.1 mg Clonidine HCl (Catapres) 0.1 mg PO TID [facility] Last Admin: 12/13/17 17:36 Dose: 0.1 mg Docusate Sodium (Colace) 100 mg PO BID [facility] Last Admin: 12/13/17 17:37 Dose: 100 mg Famotidine (Pepcid) 40 mg PO DAILY [facility] Last Admin: 12/13/17 10:18 Dose: 40 mg Ferrous Sulfate (Feosol) 325 mg PO TID [facility] Last Admin: 12/13/17 17:36 Dose: 325 mg Hydralazine HCl (Apresoline) 10 mg IVP Q6H PRN PRN Reason: Systolic Blood Pressure Hydralazine HCl (Apresoline) 100 mg PO Q8 [facility] Last Admin: 12/13/17 13:04 Dose: Not Given Losartan Potassium (Cozaar) 100 mg PO DAILY [facility] Last Admin: 12/13/17 10:16 Dose: 100 mg Methadone HCl (Methadone) 5 mg PO Q24H [facility] PRN Reason: Taper Stop: 12/15/17 09:59 Last Admin: 12/13/17 10:16 Dose: 5 mg Metoclopramide HCl (Reglan) 5 mg PO Q6H PRN PRN Reason: Nausea/Vomiting Last Admin: 12/13/17 12:05 Dose: 5 mg Minoxidil (Minoxidil) 5 mg PO DAILY [facility] Last Admin: 12/13/17 10:16 Dose: 5 mg Nicotine (Nicoderm Cq) 1 patch TD DAILY [facility] Last Admin: 12/13/17 17:37 Dose: 1 patch Nifedipine (Procardia Xl) 60 mg PO DAILY [facility] Last Admin: 12/13/17 10:18 Dose: 60 mg Trazodone HCl (Desyrel) 50 mg PO HS PRN PRN Reason: Insomnia Last Admin: 12/12/17 21:40 Dose: 50 mg - Labs Labs: 12/13/17 07:40 12/13/17 07:40
--- NOTE | 2017-12-13 21:51 | CARD ---
APPROVED REPORT Date of service: 12/13/2017 EXAM: Two-dimensional and M-mode echocardiogram with Doppler and color Doppler. INDICATION Abnormal EKG/Arrhythmia Congestive Heart Failure Surgery/Intervention DRUG ABUSE RISK FACTORS Hypertension 2D DIMENSIONS IVSd1.4 (0.7-1.1cm)LVDd4.4 (3.9-5.9cm) PWd1.1 (0.7-1.1cm)LVDs3.0 (2.5-4.0cm) FS (%) 33.1 %LVEF (%)61.8 (>50%) M-Mode DIMENSIONS Left Atrium (MM)3.89 (2.5-4.0cm)Aortic Root2.98 (2.2-3.7cm) Aortic Cusp Exc.1.94 (1.5-2.0cm) Aortic Valve AoV Peak Lliabhje405.2cm/sAoV VTI34.9cmAO Peak GR.16mmHg AO Mean GR.8mmHgAI P 1/2 [id number] Mitral Valve MV E Lovnqiur95.2cm/sMV A Silxyamq060.1cm/sE/A ratio0.8 TDI E/Lateral E'0.0E/Medial E'0.0 Tricuspid Valve TR Peak [id number]/sTR Peak Gr.[id number] LEFT VENTRICLE The left ventricle is normal size. There is mild concentric left ventricular hypertrophy. Left ventricle systolic function is normal. The Ejection Fraction is 60-65%. There is normal LV segmental wall motion. Tissue Doppler imaging reveals abnormal left ventricular diastolic dysfunction. RIGHT VENTRICLE The right ventricle is normal size. There is normal right ventricular wall thickness. The right ventricular systolic function is normal. ATRIA The left atrium size is normal. The right atrium size is normal. The interatrial septum is intact with no evidence for an atrial septal defect. AORTIC VALVE The aortic valve is normal in structure. There is mild aortic regurgitation. There is no aortic valvular stenosis. There is no aortic valvular vegetation. MITRAL VALVE The mitral valve is normal in structure. There is no evidence of mitral valve prolapse. There is no mitral valve stenosis. Mitral regurgitation is mild. TRICUSPID VALVE The tricuspid valve is normal in structure. There is mild tricuspid regurgitation. Right ventricular systolic pressure is estimated at 30-40 mmHg. There is mild pulmonary hypertension. PULMONIC VALVE The pulmonic valve is not well visualized. There is no pulmonic valvular regurgitation. GREAT VESSELS The aortic root is normal in size. PERICARDIAL EFFUSION There is no significant pericardial effusion. <Conclusion> Left ventricle systolic function is normal. The Ejection Fraction is 60-65%. Hypertensive heart disease. Diastolic dysfunction. There is mild aortic regurgitation. Mitral regurgitation is mild. There is mild tricuspid regurgitation. There is mild pulmonary hypertension. There is no pulmonic valvular regurgitation.
[2017-12-13] MEDS ORDERED: POLYETHYLENE GLYCOL 3350 17 GM/Dose PACKET PO STA (22:02)
--- NOTE | 2017-12-14 06:30 | CP.PCM.PN ---
Subjective - Date & Time of Evaluation Date of Evaluation: 12/14/17 Time of Evaluation: 09:30 - Subjective Subjective: PGY [address] Hadley. Patient seen and examined at bedside. No overnight events. Patient states she feels much better today, no nausea, vomiting, abdominal cramps, chest pain, difficulty breathing. Patients hypertension much more controlled in the 140s to 150s (patient entered service at BP in 200s+) Patient cleared by detox/psych. Patient scheduled for a renal artery ultrasound today. Objective - Vital Signs/Intake and Output Vital Signs (last 24 hours): Temp Pulse Resp BP Pulse Ox 98.0 F 64 20 126/70 99 12/13/17 23:51 12/14/17 00:00 12/13/17 23:51 12/13/17 23:51 12/13/17 23:51 Intake and Output: 12/13/17 12/14/17 18:59 06:59 Intake Total 450 Balance 450 - Medications Medications: Current Medications Acetaminophen (Tylenol 325mg Tab) 650 mg PO Q8 PRN PRN Reason: Pain, moderate (4-7) Last Admin: 12/13/17 21:55 Dose: 650 mg Acetaminophen (Tylenol 325mg Tab) 650 mg PO Q6 PRN PRN Reason: Pain, Mild (1-3) Chlorthalidone (Hygroton) 25 mg PO DAILY [facility] Last Admin: 12/13/17 10:16 Dose: 25 mg Clonidine HCl (Catapres) 0.1 mg PO Q8 PRN PRN Reason: opiate withdrawal Last Admin: 12/10/17 21:14 Dose: 0.1 mg Clonidine HCl (Catapres) 0.1 mg PO TID [facility] Last Admin: 12/13/17 17:36 Dose: 0.1 mg Docusate Sodium (Colace) 100 mg PO BID [facility] Last Admin: 12/13/17 17:37 Dose: 100 mg Famotidine (Pepcid) 40 mg PO DAILY [facility] Last Admin: 12/13/17 10:18 Dose: 40 mg Ferrous Sulfate (Feosol) 325 mg PO TID [facility] Last Admin: 12/13/17 17:36 Dose: 325 mg Hydralazine HCl (Apresoline) 10 mg IVP Q6H PRN PRN Reason: Systolic Blood Pressure Hydralazine HCl (Apresoline) 100 mg PO Q8 [facility] Last Admin: 12/14/17 05:29 Dose: 100 mg Losartan Potassium (Cozaar) 100 mg PO DAILY [facility] Last Admin: 12/13/17 10:16 Dose: 100 mg Methadone HCl (Methadone) 5 mg PO Q24H [facility] PRN Reason: Taper Stop: 12/15/17 09:59 Last Admin: 12/13/17 10:16 Dose: 5 mg Metoclopramide HCl (Reglan) 5 mg PO Q6H PRN PRN Reason: Nausea/Vomiting Last Admin: 12/13/17 12:05 Dose: 5 mg Minoxidil (Minoxidil) 5 mg PO DAILY [facility] Last Admin: 12/13/17 10:16 Dose: 5 mg Nicotine (Nicoderm Cq) 1 patch TD DAILY [facility] Last Admin: 12/13/17 17:37 Dose: 1 patch Nifedipine (Procardia Xl) 60 mg PO DAILY [facility] Last Admin: 12/13/17 10:18 Dose: 60 mg Trazodone HCl (Desyrel) 50 mg PO HS PRN PRN Reason: Insomnia Last Admin: 12/13/17 21:52 Dose: 50 mg - Labs Labs: 12/13/17 07:40 12/13/17 07:40 - Constitutional Appears: Well, Non-toxic, No Acute Distress - Head Exam Head Exam: ATRAUMATIC, NORMAL INSPECTION, NORMOCEPHALIC - Eye Exam Eye Exam: EOMI, Normal appearance, PERRL - ENT Exam ENT Exam: Mucous Membranes Moist - Neck Exam Neck Exam: Normal Inspection - Respiratory Exam Respiratory Exam: Clear to Ausculation Bilateral, NORMAL BREATHING PATTERN. absent: Rales, Rhonchi, Wheezes - Cardiovascular Exam Cardiovascular Exam: +S1, +S2. absent: Irregular Rhythm, Murmur - GI/Abdominal Exam GI & Abdominal Exam: Normal Bowel Sounds - Extremities Exam Extremities Exam: Full ROM, Normal Inspection. absent: Calf Tenderness, Pedal Edema - Neurological Exam Neurological Exam: Alert, Awake, Oriented x3 - Psychiatric Exam Psychiatric exam: Normal Affect, Normal Mood - Skin Skin Exam: Dry, Normal Color, Warm
--- NOTE | 2017-12-14 08:50 | CP.PCM.PN ---
Subjective - Date & Time of Evaluation Date of Evaluation: 12/14/17 Time of Evaluation: 08:46 - Subjective Subjective: Cardiology note for Dr Mejia Pt seen and examined at bedside. Looks better today. Patient denied CP, palpitation, dyspnea. She refused renal duplex study earlier but will do it later today. Objective - Vital Signs/Intake and Output Vital Signs (last 24 hours): Temp Pulse Resp BP Pulse Ox 98.0 F 64 20 126/70 99 12/13/17 23:51 12/14/17 00:00 12/13/17 23:51 12/13/17 23:51 12/13/17 23:51 - Medications Medications: Current Medications Acetaminophen (Tylenol 325mg Tab) 650 mg PO Q8 PRN PRN Reason: Pain, moderate (4-7) Last Admin: 12/13/17 21:55 Dose: 650 mg Acetaminophen (Tylenol 325mg Tab) 650 mg PO Q6 PRN PRN Reason: Pain, Mild (1-3) Chlorthalidone (Hygroton) 25 mg PO DAILY [facility] Last Admin: 12/13/17 10:16 Dose: 25 mg Clonidine HCl (Catapres) 0.1 mg PO Q8 PRN PRN Reason: opiate withdrawal Last Admin: 12/10/17 21:14 Dose: 0.1 mg Clonidine HCl (Catapres) 0.1 mg PO TID [facility] Last Admin: 12/13/17 17:36 Dose: 0.1 mg Docusate Sodium (Colace) 100 mg PO BID [facility] Last Admin: 12/13/17 17:37 Dose: 100 mg Famotidine (Pepcid) 40 mg PO DAILY [facility] Last Admin: 12/13/17 10:18 Dose: 40 mg Ferrous Sulfate (Feosol) 325 mg PO TID [facility] Last Admin: 12/13/17 17:36 Dose: 325 mg Hydralazine HCl (Apresoline) 10 mg IVP Q6H PRN PRN Reason: Systolic Blood Pressure Hydralazine HCl (Apresoline) 100 mg PO Q8 [facility] Last Admin: 12/14/17 05:29 Dose: 100 mg Losartan Potassium (Cozaar) 100 mg PO DAILY [facility] Last Admin: 12/13/17 10:16 Dose: 100 mg Methadone HCl (Methadone) 5 mg PO Q24H [facility] PRN Reason: Taper Stop: 12/15/17 09:59 Last Admin: 12/13/17 10:16 Dose: 5 mg Metoclopramide HCl (Reglan) 5 mg PO Q6H PRN PRN Reason: Nausea/Vomiting Last Admin: 12/13/17 12:05 Dose: 5 mg Minoxidil (Minoxidil) 5 mg PO DAILY [facility] Last Admin: 12/13/17 10:16 Dose: 5 mg Nicotine (Nicoderm Cq) 1 patch TD DAILY [facility] Last Admin: 12/13/17 17:37 Dose: 1 patch Nifedipine (Procardia Xl) 60 mg PO DAILY [facility] Last Admin: 12/13/17 10:18 Dose: 60 mg Trazodone HCl (Desyrel) 50 mg PO HS PRN PRN Reason: Insomnia Last Admin: 12/13/17 21:52 Dose: 50 mg - Labs Labs: 12/13/17 07:40 12/13/17 07:40 - Constitutional Appears: Well, No Acute Distress - Head Exam Head Exam: ATRAUMATIC, NORMAL INSPECTION, NORMOCEPHALIC - Eye Exam Eye Exam: EOMI, Normal appearance, PERRL Pupil Exam: NORMAL ACCOMODATION, PERRL - ENT Exam ENT Exam: Mucous Membranes Moist, Normal Exam - Neck Exam Neck Exam: Full ROM, Normal Inspection. absent: Lymphadenopathy - Respiratory Exam Respiratory Exam: Clear to Ausculation Bilateral, NORMAL BREATHING PATTERN - Cardiovascular Exam Cardiovascular Exam: Bradycardia, +S1, +S2, Murmur - GI/Abdominal Exam GI & Abdominal Exam: Soft, Normal Bowel Sounds. absent: Tenderness - Rectal Exam Rectal Exam: Deferred - Extremities Exam Extremities Exam: Full ROM, Normal Capillary Refill, Normal Inspection. absent : Joint Swelling, Pedal Edema - Neurological Exam Neurological Exam: Alert, Altered, Awake - Psychiatric Exam Psychiatric exam: Normal Affect, Normal Mood - Skin Skin Exam: Dry, Intact, Normal Color, Warm Assessment and Plan (1) HTN (hypertension) Assessment & Plan: Echo shows diastolic dysfunction. EF 60-65%. Mild TR/MR Renal artery duplex to be done Status: Acute (2) EKG abnormalities Assessment & Plan: EKG: sinus bradycardia, L atrial enlargement patient asymptomatic continue current medications Status: Acute (3) Drug abuse Assessment & Plan: as per psych recs Status: Acute - Assessment and Plan (Free Text) Assessment: 52 y/o female with PMH of HTN, CHF, CKD admitted for opiates and cocaine intoxication. Patient vitals are stable. Plan: Plan: Renal artery duplex continue current medication manage withdrawal symptoms as per psych recs Plan reviewed and discussed with Dr Roberto Finn, PGY 1
[2017-12-14] MEDS: NIFEdipine 60 mg ER Tab PO SCH (10:48)
[2017-12-14] MEDS ORDERED: Bisacodyl 5mg EC Tab PO STA (14:23)
--- NOTE | 2017-12-14 15:07 | CP.PCM.PN ---
Subjective - Date & Time of Evaluation Date of Evaluation: 12/14/17 Time of Evaluation: 15:06 - Subjective Subjective: Nephrology Consultation Note: Assessment: stable uncontrolled severe HTN with emergency: improved Acute Kidney Injury (N17.9) likely hemodynamic due to BP changes, drugs such as cocaine also contributes: improving CKD stage 3 with 500 mg proteinuria likely due to HTN HTN CKD (I12.9) cocaine abuse, opiates abuse active smoker thrombocytopenia Plan No acute need for renal replacement therapy at this time maintain hemodynamics stable. continue with losartan 100 mg/day, hydralazine 100 mg q8 hr, start minoxidil 5 mg/day, chlorthalidone 25 mg/day. pt had tolerated norvasc in past without any allergic reaction. started nifedipine 60 mg/day. now BP better controlled minimize clonidine due to bradycardia. Avoid beta-blockers due to cocaine + and bradycardia. consider to gradually taper off clonidine, changed to bid from tid monitor I/O daily weights and renal function with BMP will consider secondary HTN work up if BP remains uncontrolled despite abstinence from drugs Dose meds/antibiotics for reduced GFR. Avoid fleets enema/magnesium based laxatives. Avoid nephrotoxins/NSAIDs/ iodinated contrast (unless needed emergently) Glycemic control, low salt diet Further work up for as per primary team. Glycemic control. pt need to abstain from drugs. smoking cessation. weight loss. diet/exercise and lifestyle modifications needed. d/w patient about risks and consequences of uncontrolled HTN and drug abuse. Further work up/management as per primary team pt stable for d/c from renal perspective when planned Thanks for allowing me to participate in care of your patient. pt was advised to f/up in 1 week in renal office. Please call if any Qs. had d/w team. Dr Rolly Cardoso Office: [phone] Chief Complaint; none reason for consult: CKD and HTN HPI: Pt is a 52 F y/o F with hx of HTN x 13 yrs, CKD stage 3/4, thrombocytopenia , polysubstance drug abuse, presented for detox and transferred to medical floor for HTN emergency renal consult for MELE/CKD and HTN management pt c/o headache. denies CP/SOB Denies OTC/herbal meds or NSAIDs No recent iodinated contrast exposure. admits to smoking and drug abuse ROS: Cardiovascular: No chest pain. Pulmonary: No shortness of breath Gastrointestinal: denies abdominal pain No nausea. No vomiting. Genitourinary: No pain while urinating. Denies blood in urine. All other negative except as mentioned in HPI Physical Examination: General Appearance: comfortable, in no acute respiratory distress, co-operative Vitals reviewed and noted as below Head; Atraumatic, normocephalic ENT: no ulcers no thrush. Tongue is midline. Oropharynx: no rash or ulcers. EYES: Pupils are equal, round and reactive to light accommodation. Eye muscles and extraocular movement intact. Sclera is anicteric. Neck; supple no lymphadenopathy, no thyromegaly or bruit Lungs: Normal respiratory rate/effort. Breath sounds bilateral equal and clear Heart: Normal rate. s1s2 normal. No rub or gallop. Extremities: no edema. No varicose veins Neurological: Patient is alert, awake and oriented to person, place and time. No focal deficit. Strength bilateral appropriate and equal Skin: Warm and dry. Normal turgor. No rash. Palpitation: Normal elasticity for age Abdomen: Abdomen is soft. Bowel sounds +. There is no abdominal tenderness, no guarding/rigidity no organomegaly Psych: normal insight and normal affect/mood MSK: no joint tenderness or swelling. Digits and nails normal, no deformity : kidney or bladder not palpable Labs/imaging reviewed. Past medical history, past surgical history, family history, social history, allergy reviewed and noted as below Family hx: no hx of CKD. Rest non-contributory renal sono as outpt: mildly increased echogenicity UTOX + for cocaine and opiates Objective - Vital Signs/Intake and Output Vital Signs (last 24 hours): Temp Pulse Resp BP Pulse Ox 97.4 F L 69 20 103/69 99 12/14/17 07:55 12/14/17 14:47 12/14/17 07:55 12/14/17 14:47 12/14/17 07:55 Intake and Output: 12/14/17 12/14/17 06:59 18:59 Intake Total 580 Balance 580 - Medications Medications: Current Medications Acetaminophen (Tylenol 325mg Tab) 650 mg PO Q8 PRN PRN Reason: Pain, moderate (4-7) Last Admin: 12/14/17 12:12 Dose: 650 mg Acetaminophen (Tylenol 325mg Tab) 650 mg PO Q6 PRN PRN Reason: Pain, Mild (1-3) Chlorthalidone (Hygroton) 25 mg PO DAILY [facility] Last Admin: 12/14/17 10:48 Dose: 25 mg Clonidine HCl (Catapres) 0.1 mg PO Q8 PRN PRN Reason: opiate withdrawal Last Admin: 12/10/17 21:14 Dose: 0.1 mg Clonidine HCl (Catapres) 0.1 mg PO BID [facility] Last Admin: 12/14/17 10:49 Dose: 0.1 mg Docusate Sodium (Colace) 100 mg PO BID [facility] Last Admin: 12/14/17 10:49 Dose: 100 mg Famotidine (Pepcid) 40 mg PO DAILY [facility] Last Admin: 12/14/17 10:49 Dose: 40 mg Ferrous Sulfate (Feosol) 325 mg PO TID [facility] Last Admin: 12/14/17 14:47 Dose: 325 mg Hydralazine HCl (Apresoline) 10 mg IVP Q6H PRN PRN Reason: Systolic Blood Pressure Hydralazine HCl (Apresoline) 100 mg PO Q8 [facility] Last Admin: 12/14/17 14:49 Dose: Not Given Losartan Potassium (Cozaar) 100 mg PO DAILY [facility] Last Admin: 12/14/17 10:49 Dose: 100 mg Methadone HCl (Methadone) 5 mg PO Q24H [facility] PRN Reason: Taper Stop: 12/15/17 09:59 Last Admin: 12/14/17 10:48 Dose: 5 mg Metoclopramide HCl (Reglan) 5 mg PO Q6H PRN PRN Reason: Nausea/Vomiting Last Admin: 12/13/17 12:05 Dose: 5 mg Minoxidil (Minoxidil) 5 mg PO DAILY [facility] Last Admin: 12/14/17 10:49 Dose: 5 mg Nicotine (Nicoderm Cq) 1 patch TD DAILY [facility] Last Admin: 12/14/17 10:48 Dose: 1 patch Nifedipine (Procardia Xl) 60 mg PO DAILY [facility] Last Admin: 12/14/17 10:48 Dose: 60 mg Trazodone HCl (Desyrel) 50 mg PO HS PRN PRN Reason: Insomnia Last Admin: 12/13/17 21:52 Dose: 50 mg - Labs Labs: 12/13/17 07:40 12/13/17 07:40
[2017-12-14 16:28] VITALS: BP 113/74; PULSE 60; RESP 18; TEMP 97.5; O2SAT 97
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
--- NOTE | 2017-12-17 10:32 | VASCLAB ---
Date of service: 12/14/2017 PROCEDURE: Ultrasonography renal arterial evaluation HISTORY: uncontrolled HTN COMPARISON: None available. TECHNIQUE: Real-time ultrasonography evaluation of the renal arteries were performed. Comparison is made to the aorta. Report prepared by Carolina Villalobos RDCS, RVS FINDINGS: AORTA: Patent. Peak systolic velocity 83 centimeters/second RIGHT RENAL ARTERY: Renal artery to aorta ratio: * Proximal segment: Patent. Peak systolic velocity 135 centimeters/second * Mid segment: Patent. Peak systolic velocity 136 centimeters/second * Distal segment: Patent. Peak systolic velocity 89 centimeters/second Other findings: Right Kidney measures approximately 8.18 centimeters. LEFT RENAL ARTERY: Renal artery to aorta ratio: * Proximal segment: Patent. Peak systolic velocity 145 centimeters/second * Mid segment: Patent. Peak systolic velocity 153 centimeters/second * Distal segment: Patent. Peak systolic velocity 90 centimeters/second Other findings: Left Kidney measures approximately 8.28 centimeters. IMPRESSION: Normal arterial flow noted in the both renal arteries.
== END 2017-12-14 16:26 | disposition home or self-care (01) | DRG 744 ==
LOC: C.ER 15:16 → C.7D 18:41 → C.5S 12-12 09:45
PROVIDERS: ADMIT Hospitalist; ATTEND Hospitalist
PROC: HZ2ZZZZ Detoxification Services for Substance Abuse Treatment (ICD-10-PCS; principal; 2017-12-10)
PROC: HZ52ZZZ Individual Psychotherapy for Substance Abuse Treatment, Cognitive-Behavioral (ICD-10-PCS; 2017-12-10)
PROC: HZ59ZZZ Individual Psychotherapy for Substance Abuse Treatment, Supportive (ICD-10-PCS; 2017-12-10)
PROC: HZ56ZZZ Individual Psychotherapy for Substance Abuse Treatment, Psychoeducation (ICD-10-PCS; 2017-12-10)
DX: F11.23 Opioid dependence with withdrawal (principal); I13.0 Hypertensive heart and chronic kidney disease with heart failure and stage 1 through stage 4 chronic kidney disease, or unspecified chronic kidney disease; N17.9 Acute kidney failure, unspecified; I50.9 Heart failure, unspecified; N18.4 Chronic kidney disease, stage 4 (severe); D69.6 Thrombocytopenia, unspecified; F14.23 Cocaine dependence with withdrawal; F17.210 Nicotine dependence, cigarettes, uncomplicated; G47.00 Insomnia, unspecified; I16.1 Hypertensive emergency; K21.9 Gastro-esophageal reflux disease without esophagitis; K59.00 Constipation, unspecified; D72.819 Decreased white blood cell count, unspecified; Z99.3 Dependence on wheelchair